=== PATIENT | female | born 1960 | race African-American/Black ===

== ENCOUNTER 2021-08-01 04:45 | Emergency (ER) | payer OTHER ==
[2021-08-01] MEDS ORDERED: Morphine 4 MG/ML VIAL ONE (05:17)
[2021-08-01 05:30] LABS: #Eosinphils 0.2 10x3/uL (0.0-0.5); #Monocytes 0.6 10x3/uL (0.0-1.1); #Neutrophils 3.7 10x3/uL (1.5-8.4); %Basophils 0.4 % (0.0-2.0); %Eosinophils 2.1 % (0.0-6.0); %Lymphocytes 36.6 % (18.0-47.0); %Monocytes 8.9 % (0.0-10.0); %Neutrophils 51.7 % (40.0-75.0); Hemoglobin 12.9 g/dL (12.0-15.5); Mean Corpuscular HGB CONC 33.9 g/dL (32.0-36.0); Mean Corpuscular Hemoglobin 30.7 pg (27.0-33.0); Mean Corpuscular Volume 90.7 fl (81.6-98.3); Mean Platelet Volume 12.2 fl (7.4-10.4); Platelet Count 152 10x3/uL (150-450); RBC Distribution Width 13.5 % (11.5-14.5); White Blood Cell (WBC) Count 7.1 10x3/uL (3.5-10.5)
[2021-08-01 05:46] LABS: ALT (SGPT) 142 U/L (8-55); AST (SGOT) 118 U/L (5-34); Albumin 3.1 g/dL (3.5-5.0); Alkaline Phosphatase 92 U/L (40-110); Anion Gap 16 mmol/L (10-20); BUN (Urea Nitrogen) 17 mg/dL (9.8-20.1); Bilirubin, Total 0.4 mg/dL (0.2-1.2); CK (CPK) 38 U/L (29-168); CRP (Inflammatory) Less than 0.50 mg/dL (= or < 0.5); Calc. Creatinine Clearance 0 mL/min (70-130); Calcium 8.9 mg/dL (7.8-10.44); Carbon Dioxide 22 mmol/L (22-29); Chloride 103 mmol/L (98-107); Globulin 4.8 g/dL (2.4-3.5); Glucose 192 mg/dL (70-105); Potassium 3.8 mmol/L (3.5-5.1); Protein, Total 7.9 g/dL (6.0-8.3); Sodium 137 mmol/L (136-145)
[2021-08-01 05:58] LABS: INR-International Normal Ratio 1.1; PTT 28.1 sec (22.0-33.0); Prothrombin Time 11.4 sec (9.5-12.1)
[2021-08-01 06:07] LABS: MDiff Complete? YES
[2021-08-01 06:24] LABS: Bilirubin Neg (Negative); Blood, Urine 25 (Negative); Clarity Clear (Clear); Glucose, Urine (Dipstick) 50 mg/dL (Negative); Ketone, Urine Negative (Negative); Leukocyte 100 (Negative); Nitrite Negative (Negative); Protein, Urine (Dipstick) 30 mg/dl (Neg-Trace); pH, Urine 6.5 (5.0-9.0)
[2021-08-01 06:34] LABS: Trichomonas/HPF 1+ HPF (None Seen)
[2021-08-01 06:38] LABS: Band 5 % (5-11); Eosinophils 1 % (0-10); Lymphocytes 35 % (21-51); Monocytes 9 % (0-10); Neutrophil 50 % (42-75)
[2021-08-01 06:38] LABS: RBC/HPF 0-3 HPF (0-3); WBC/HPF 0-3 HPF (0-3)
[2021-08-01] MEDS ORDERED: Iopamidol 370 76% 100 ML VIAL ONE (11:01)
== END 2021-08-01 07:08 | disposition home or self-care (01) ==
LOC: CSHERS 04:45
DX: E11.51 Type 2 diabetes mellitus with diabetic peripheral angiopathy without gangrene (principal); L03.116 Cellulitis of left lower limb; L03.115 Cellulitis of right lower limb; L97.829 Non-pressure chronic ulcer of other part of left lower leg with unspecified severity; E11.40 Type 2 diabetes mellitus with diabetic neuropathy, unspecified; I10 Essential (primary) hypertension; F17.210 Nicotine dependence, cigarettes, uncomplicated; Z79.84 Long term (current) use of oral hypoglycemic drugs; Z79.899 Other long term (current) drug therapy
CPT/HCPCS: 36416; 75635; 80053; 81003; 81015; 82550; 83605; 85025; 85610; 85730; 86140; 87040; 87086; 96361; 96374; J2270; Q9967

== ENCOUNTER 2021-08-06 09:17 | Outpatient (CLI) | payer OTHER | END 2021-08-06 09:18 | disposition home or self-care (01) | LOC: CSHWCC 09:17 | PROVIDERS: ATTEND Nurse Practitioner Family | DX: I70.262 Atherosclerosis of native arteries of extremities with gangrene, left leg (principal); L97.225 Non-pressure chronic ulcer of left calf with muscle involvement without evidence of necrosis; R60.0 Localized edema | CPT/HCPCS: 36416; 99204; G0463 ==

== ENCOUNTER 2021-08-14 10:49 | Outpatient (CLI) | payer OTHER | END 2021-08-14 10:50 | disposition home or self-care (01) | LOC: CSHWCC 10:49 | PROVIDERS: ATTEND Nurse Practitioner Family | DX: I70.262 Atherosclerosis of native arteries of extremities with gangrene, left leg (principal); L97.225 Non-pressure chronic ulcer of left calf with muscle involvement without evidence of necrosis; R60.0 Localized edema | CPT/HCPCS: 93923 ==

== ENCOUNTER 2021-09-10 09:56 | Outpatient (CLI) | payer OTHER | END 2021-09-10 09:57 | disposition home or self-care (01) | LOC: CSHWCC 09:56 | PROVIDERS: ATTEND Nurse Practitioner Family | DX: I70.262 Atherosclerosis of native arteries of extremities with gangrene, left leg (principal); L97.225 Non-pressure chronic ulcer of left calf with muscle involvement without evidence of necrosis; R60.0 Localized edema | CPT/HCPCS: 11042; 97607 ==

== ENCOUNTER 2021-09-15 15:17 | Inpatient (IN) | payer OTHER ==
[2021-09-15] MEDS ORDERED: Morphine 4 MG/ML VIAL ONE (16:47)
[2021-09-15] MEDS ORDERED: Ondansetron PF 4 MG/2 ML Vial ONE (16:47)
[2021-09-15 17:18] LABS: PTT 28.6 sec (22.0-33.0); Prothrombin Time 11.3 sec (9.5-12.1)
[2021-09-15 17:27] LABS: ALT (SGPT) 88 U/L (8-55); AST (SGOT) 74 U/L (5-34); Albumin 3.1 g/dL (3.5-5.0); Alkaline Phosphatase 105 U/L (40-110); Anion Gap 13 mmol/L (10-20); BUN (Urea Nitrogen) 20 mg/dL (9.8-20.1); Bilirubin, Total 0.4 mg/dL (0.2-1.2); Calc. Creatinine Clearance 0 mL/min (70-130); Calcium 9.3 mg/dL (7.8-10.44); Carbon Dioxide 26 mmol/L (22-29); Chloride 99 mmol/L (98-107); Estimated GFR 70; Globulin 5.1 g/dL (2.4-3.5); Glucose 410 mg/dL (70-105); Potassium 4.1 mmol/L (3.5-5.1); Protein, Total 8.2 g/dL (6.0-8.3); Sodium 134 mmol/L (136-145)
[2021-09-15 17:32] LABS: #Eosinphils 0.2 10x3/uL (0.0-0.5); #Monocytes 0.5 10x3/uL (0.0-1.1); #Neutrophils 4.2 10x3/uL (1.5-8.4); %Basophils 0.4 % (0.0-2.0); %Lymphocytes 28.6 % (18.0-47.0); %Monocytes 7.2 % (0.0-10.0); %Neutrophils 60.5 % (40.0-75.0); Hemoglobin 12.7 g/dL (12.0-15.5); Mean Corpuscular HGB CONC 33.2 g/dL (32.0-36.0); Mean Corpuscular Hemoglobin 30.4 pg (27.0-33.0); Mean Corpuscular Volume 91.4 fl (81.6-98.3); Mean Platelet Volume 12.7 fl (7.4-10.4); Platelet Count 181 10x3/uL (150-450); RBC Distribution Width 13.5 % (11.5-14.5); Red Blood Cell (RBC) Count 4.18 10x6/uL (3.90-5.03)
[2021-09-15] MEDS ORDERED: Cefepime 2 GM VIAL ONE (18:00)
[2021-09-15 20:39] LABS: Lactic Acid 2.2 mmol/L (0.5-2.2)
[2021-09-15] MEDS ORDERED: Acetaminophen 325 MG TAB PO PRN (21:03)
[2021-09-15] MEDS ORDERED: Dextrose 5% in Water 1,000 ML IV PRN (21:13)
[2021-09-15] MEDS ORDERED: Dextrose 50% Abboject 50 ML SYRINGE SLOW IVP PRN (21:13)
[2021-09-15] MEDS ORDERED: VANCOMYCIN 1.25 GM/250 ML BAG IVPB SCH (21:15)
[2021-09-15] MEDS ORDERED: Aspirin 81 mg Enteric Coated Tablet PO SCH (21:30)
[2021-09-15] MEDS ORDERED: Sodium Chloride 0.9% 1,000 ML IV SCH (21:30)
[2021-09-15 21:42] VITALS: BMI 23.1
[2021-09-15] MEDS ORDERED: cloNIDine 0.1 MG TAB PO SCH (21:45)
[2021-09-15] MEDS ORDERED: Vancomycin HCl 1 GM in Sodium Chloride 0.9% 250 ML 250 ML IVPB SCH (22:15)
[2021-09-15] MEDS ORDERED: Lantus 1000 UNITS/10 ML VIAL SC SCH (22:45)
[2021-09-15 23:10] LABS: SARS-CoV-2 NAA Rapid Test Not Detected (NotDetected)
[2021-09-15] MEDS: Sodium Chloride 0.9% 1,000 ML IV SCH (23:25)
[2021-09-16] MEDS ORDERED: cloNIDine 0.1 MG TAB PO SCH (04:30)
[2021-09-16] MEDS ORDERED: Morphine 2 MG/ML VIAL SLOW IVP SCH (04:45)
[2021-09-16] MEDS: HumaLOG 300 UNITS/3 ML VIAL SC PRN ×3 (04:49→20:59)
[2021-09-16 05:31] LABS: #Eosinphils 0.3 10x3/uL (0.0-0.5); #Monocytes 0.6 10x3/uL (0.0-1.1); #Neutrophils 4.1 10x3/uL (1.5-8.4); %Basophils 0.4 % (0.0-2.0); %Eosinophils 3.3 % (0.0-6.0); %Lymphocytes 34.9 % (18.0-47.0); %Monocytes 7.3 % (0.0-10.0); %Neutrophils 53.7 % (40.0-75.0); Hemoglobin 12.1 g/dL (12.0-15.5); Mean Corpuscular HGB CONC 32.8 g/dL (32.0-36.0); Mean Corpuscular Hemoglobin 29.8 pg (27.0-33.0); Mean Corpuscular Volume 90.9 fl (81.6-98.3); Mean Platelet Volume 12.6 fl (7.4-10.4); Platelet Count 178 10x3/uL (150-450); RBC Distribution Width 13.5 % (11.5-14.5); Red Blood Cell (RBC) Count 4.06 10x6/uL (3.90-5.03); White Blood Cell (WBC) Count 7.7 10x3/uL (3.5-10.5)
[2021-09-16 05:38] LABS: Anion Gap 13 mmol/L (10-20); BUN (Urea Nitrogen) 22 mg/dL (9.8-20.1); Calc. Creatinine Clearance 65 mL/min (70-130); Calcium 8.6 mg/dL (7.8-10.44); Carbon Dioxide 23 mmol/L (22-29); Chloride 108 mmol/L (98-107); Estimated GFR 90; Glucose 191 mg/dL (70-105); Magnesium 1.5 mg/dL (1.6-2.6); Potassium 3.6 mmol/L (3.5-5.1); Sodium 140 mmol/L (136-145)
[2021-09-16] MEDS: Cefepime 2 GM in Sodium Chloride 0.9% 100 ML IVPB SCH ×2 (06:02→17:46)
[2021-09-16] MEDS ORDERED: Magnesium 2 GM/50 ML(in water) 4 GM in Premix Bag 1 BAG IVPB SCH (08:00)
[2021-09-16] MEDS: Amlodipine 5 MG TAB PO SCH (09:31)
[2021-09-16] MEDS: metFORMIN 500 MG TAB PO SCH ×3 (09:31→17:45)
[2021-09-16] MEDS: Aspirin 81 mg Enteric Coated Tablet PO SCH (09:31)
[2021-09-16] MEDS: Enoxaparin Sodium 40 MG/0.4 ML SYRINGE SC SCH (09:31)
[2021-09-16] MEDS: Sodium Chloride 0.9% 1,000 ML IV SCH (09:31)
[2021-09-16] MEDS: cloNIDine 0.1 MG TAB PO SCH ×2 (09:32→21:06)
[2021-09-16] MEDS ORDERED: Hydrochlorothiazide 25 MG TAB PO SCH (10:00)
[2021-09-16 10:41] LABS: ALT (SGPT) 77 U/L (8-55); AST (SGOT) 67 U/L (5-34); Albumin 2.8 g/dL (3.5-5.0); Alkaline Phosphatase 98 U/L (40-110); Bilirubin, Direct 0.2 mg/dL (0.1-0.3); Bilirubin, Total 0.3 mg/dL (0.2-1.2); Protein, Total 7.3 g/dL (6.0-8.3)
[2021-09-16] MEDS: Nicotine 21 MG PATCH TD SCH (11:52)
[2021-09-16] MEDS: HYDROcodone/Acetaminophen 5/325 mg Tablet PO PRN (17:45)
[2021-09-16] MEDS: Morphine 2 MG/ML VIAL SLOW IVP PRN ×2 (19:10→23:16)
[2021-09-16] MEDS: Montelukast Sodium 10 mg Tablet PO SCH (20:55)
[2021-09-16] MEDS ORDERED: Lantus 1000 UNITS/10 ML VIAL SC SCH ×3 (21:00)
[2021-09-16] MEDS ORDERED: Vancomycin HCl 750 MG in Sodium Chloride 0.9% 250 ML 250 ML IVPB SCH (23:00)
[2021-09-17] MEDS: HumaLOG 300 UNITS/3 ML VIAL SC PRN ×4 (00:17→18:06)
[2021-09-17 00:58] LABS: Amphetamine Not Detected (NotDetected); Barbiturates Screen Not Detected (NotDetected); Benzodiazepine Screen Not Detected (NotDetected); Cocaine Metabolite Screen Detected (NotDetected); Methadone Not Detected (NotDetected); Methamphetamine Not Detected (NotDetected); Opiate Screen Detected (NotDetected); Oxycodone Screen Not Detected (NotDetected); Phencyclidine (PCP) Not Detected (NotDetected); THC/Cannabinoid Screen Not Detected (NotDetected); Tricyclic Screen Not Detected (NotDetected)
[2021-09-17] MEDS: Morphine 2 MG/ML VIAL SLOW IVP PRN ×2 (05:10→20:00)
[2021-09-17] MEDS: Cefepime 2 GM in Sodium Chloride 0.9% 100 ML IVPB SCH ×2 (05:30→18:04)
[2021-09-17 05:58] LABS: ALT (SGPT) 74 U/L (8-55); AST (SGOT) 63 U/L (5-34); Albumin 2.7 g/dL (3.5-5.0); Alkaline Phosphatase 82 U/L (40-110); Anion Gap 11 mmol/L (10-20); BUN (Urea Nitrogen) 21 mg/dL (9.8-20.1); Bilirubin, Total 0.3 mg/dL (0.2-1.2); Calc. Creatinine Clearance 68 mL/min (70-130); Calcium 8.9 mg/dL (7.8-10.44); Carbon Dioxide 22 mmol/L (22-29); Chloride 109 mmol/L (98-107); Estimated GFR 96; Globulin 4.6 g/dL (2.4-3.5); Glucose 263 mg/dL (70-105); Magnesium 1.5 mg/dL (1.6-2.6); Potassium 4.1 mmol/L (3.5-5.1); Protein, Total 7.3 g/dL (6.0-8.3); Sodium 138 mmol/L (136-145)
[2021-09-17 06:10] LABS: Hep B Surf Ag Non-Reactive S/CO (NonReactive)
[2021-09-17 06:46] LABS: Cardiac Risk 4.5 (Less than 4.5); Cholesterol 118 mg/dl (< 200 Desired); HDL Cholesterol 26 mg/dL (>60 Neg Risk); LDL Cholesterol, Calculated 71 mg/dL; Triglycerides 105 mg/dL (Less than 150)
[2021-09-17 07:43] LABS: HBSAg Index 0.21 S/CO (0-0.99)
[2021-09-17] MEDS: metFORMIN 500 MG TAB PO SCH ×2 (08:57→18:04)
[2021-09-17] MEDS: Magnesium 2 GM/50 ML(in water) 2 GM in Premix Bag 1 BAG IVPB SCH ×2 (08:58→12:03)
[2021-09-17] MEDS: Nicotine 21 MG PATCH TD SCH (08:58)
[2021-09-17] MEDS: Enoxaparin Sodium 40 MG/0.4 ML SYRINGE SC SCH (08:59)
[2021-09-17] MEDS: Aspirin 81 mg Enteric Coated Tablet PO SCH (08:59)
[2021-09-17] MEDS: Amlodipine 5 MG TAB PO SCH (08:59)
[2021-09-17] MEDS: cloNIDine 0.1 MG TAB PO SCH ×2 (09:03→22:00)
[2021-09-17] MEDS: Hydrochlorothiazide 25 MG TAB PO SCH (09:03)
[2021-09-17 10:23] LABS: %Lymphocytes 35.8 % (18.0-47.0); %Monocytes 9.2 % (0.0-10.0); %Neutrophils 51.3 % (40.0-75.0); Hemoglobin 11.6 g/dL (12.0-15.5); Mean Corpuscular HGB CONC 33.5 g/dL (32.0-36.0); Mean Corpuscular Hemoglobin 30.2 pg (27.0-33.0); Mean Corpuscular Volume 90.1 fl (81.6-98.3); Mean Platelet Volume 12.4 fl (7.4-10.4); Platelet Count 178 10x3/uL (150-450); RBC Distribution Width 13.9 % (11.5-14.5); Red Blood Cell (RBC) Count 3.84 10x6/uL (3.90-5.03); White Blood Cell (WBC) Count 8.1 10x3/uL (3.5-10.5)
[2021-09-17 10:24] LABS: #Eosinphils 0.2 10x3/uL (0.0-0.5); #Monocytes 0.8 10x3/uL (0.0-1.1); #Neutrophils 4.2 10x3/uL (1.5-8.4); %Basophils 0.5 % (0.0-2.0)
[2021-09-17] MEDS: Vancomycin HCl 750 MG in Sodium Chloride 0.9% 250 ML 250 ML IVPB SCH (12:04)
[2021-09-17] MEDS: HYDROcodone/Acetaminophen 5/325 mg Tablet PO PRN (22:20)
[2021-09-17] MEDS: Montelukast Sodium 10 mg Tablet PO SCH (22:22)
[2021-09-17] MEDS: Lantus 1000 UNITS/10 ML VIAL SC SCH (22:23)
[2021-09-18] MEDS: Morphine 2 MG/ML VIAL SLOW IVP PRN (01:01)
[2021-09-18 04:07] LABS: PTT 27.4 sec (22.0-33.0)
[2021-09-18 04:15] LABS: ALT (SGPT) 76 U/L (8-55); AST (SGOT) 68 U/L (5-34); Albumin 2.7 g/dL (3.5-5.0); Alkaline Phosphatase 89 U/L (40-110); Anion Gap 13 mmol/L (10-20); BUN (Urea Nitrogen) 16 mg/dL (9.8-20.1); Bilirubin, Total 0.3 mg/dL (0.2-1.2); Calc. Creatinine Clearance 80 mL/min (70-130); Calcium 8.3 mg/dL (7.8-10.44); Carbon Dioxide 21 mmol/L (22-29); Chloride 106 mmol/L (98-107); Estimated GFR 102; Globulin 4.5 g/dL (2.4-3.5); Glucose 171 mg/dL (70-105); Magnesium 1.8 mg/dL (1.6-2.6); Potassium 3.8 mmol/L (3.5-5.1); Protein, Total 7.2 g/dL (6.0-8.3); Sodium 136 mmol/L (136-145)
[2021-09-18 04:18] LABS: #Eosinphils 0.3 10x3/uL (0.0-0.5); #Monocytes 0.7 10x3/uL (0.0-1.1); #Neutrophils 4.5 10x3/uL (1.5-8.4); %Basophils 0.5 % (0.0-2.0); %Eosinophils 3.1 % (0.0-6.0); %Lymphocytes 32.8 % (18.0-47.0); %Monocytes 8.4 % (0.0-10.0); Hemoglobin 11.1 g/dL (12.0-15.5); Mean Corpuscular HGB CONC 32.8 g/dL (32.0-36.0); Mean Corpuscular Hemoglobin 29.8 pg (27.0-33.0); Mean Corpuscular Volume 90.9 fl (81.6-98.3); Mean Platelet Volume 12.3 fl (7.4-10.4); Platelet Count 184 10x3/uL (150-450); RBC Distribution Width 13.5 % (11.5-14.5); Red Blood Cell (RBC) Count 3.72 10x6/uL (3.90-5.03); White Blood Cell (WBC) Count 8.1 10x3/uL (3.5-10.5)
[2021-09-18] MEDS: Cefepime 2 GM in Sodium Chloride 0.9% 100 ML IVPB SCH ×2 (07:15→18:44)
[2021-09-18] MEDS: Vancomycin HCl 750 MG in Sodium Chloride 0.9% 250 ML 250 ML IVPB SCH ×3 (07:22→22:04)
[2021-09-18] MEDS ORDERED: Clopidogrel Bisulfate 300 MG TAB PO SCH (09:00)
[2021-09-18] MEDS: metFORMIN 500 MG TAB PO SCH ×2 (10:26→18:10)
[2021-09-18] MEDS: Amlodipine 5 MG TAB PO SCH (10:26)
[2021-09-18] MEDS: Aspirin 81 mg Enteric Coated Tablet PO SCH (10:26)
[2021-09-18] MEDS: Enoxaparin Sodium 40 MG/0.4 ML SYRINGE SC SCH (10:27)
[2021-09-18] MEDS: Nicotine 21 MG PATCH TD SCH (10:27)
[2021-09-18] MEDS: cloNIDine 0.1 MG TAB PO SCH ×2 (10:36→21:54)
[2021-09-18] MEDS: Hydrochlorothiazide 25 MG TAB PO SCH (11:58)
[2021-09-18] MEDS ORDERED: Heparin 10,000 UNITS/ 10 ML VIAL ONE (12:12)
[2021-09-18] MEDS ORDERED: Midazolam HCl 2 mg/2 ml Vial ONE (12:13)
[2021-09-18] MEDS ORDERED: Fentanyl 100 MCG/2 ML VIAL ONE (12:13)
[2021-09-18] MEDS ORDERED: Lidocaine 1% 20 ML MDV ONE (12:14)
[2021-09-18] MEDS ORDERED: Iopamidol 300 61% 100 ML VIAL FS ONE (12:48)
[2021-09-18] MEDS ORDERED: Iopamidol 300 61% 50 ML VIAL FS ONE (12:48)
[2021-09-18] MEDS ORDERED: Labetalol HCl 100 MG/20 ML VIAL ONE (13:19)
[2021-09-18] MEDS ORDERED: Protamine Sulfate 50 MG/5 ML VIAL ONE (13:39)
[2021-09-18 13:58] LABS: HBSAB Concentration Less than 8.00 mIU/mL; Hep B Surf AB Non-Reactive (NonReactive)
[2021-09-18 14:01] LABS: Hep B Core Total Ab Reactive (NonReactive); Hep B Core Total Index 9.19 S/CO (0-0.79); Hep C IgG Ab Reflex HepC Qnt (NonReactive); Hep C Index 17.07 S/CO (0-0.79)
[2021-09-18] MEDS: HYDROcodone/Acetaminophen 5/325 mg Tablet PO PRN ×2 (18:10→22:45)
[2021-09-18] MEDS: Carvedilol 6.25 MG TAB PO SCH (18:44)
[2021-09-18] MEDS: Montelukast Sodium 10 mg Tablet PO SCH (21:55)
[2021-09-18] MEDS: Lantus 1000 UNITS/10 ML VIAL SC SCH (21:58)
[2021-09-19] MEDS: HYDROcodone/Acetaminophen 5/325 mg Tablet PO PRN (05:13)
[2021-09-19 05:21] LABS: ALT (SGPT) 80 U/L (8-55); AST (SGOT) 65 U/L (5-34); Albumin 2.7 g/dL (3.5-5.0); Alkaline Phosphatase 97 U/L (40-110); Anion Gap 11 mmol/L (10-20); BUN (Urea Nitrogen) 16 mg/dL (9.8-20.1); Bilirubin, Total 0.2 mg/dL (0.2-1.2); Calc. Creatinine Clearance 70 mL/min (70-130); Calcium 8.6 mg/dL (7.8-10.44); Carbon Dioxide 24 mmol/L (22-29); Chloride 104 mmol/L (98-107); Estimated GFR 99; Globulin 4.8 g/dL (2.4-3.5); Glucose 382 mg/dL (70-105); Magnesium 1.5 mg/dL (1.6-2.6); Protein, Total 7.5 g/dL (6.0-8.3); Sodium 135 mmol/L (136-145)
[2021-09-19] MEDS: Cefepime 2 GM in Sodium Chloride 0.9% 100 ML IVPB SCH ×2 (05:23→18:25)
[2021-09-19 05:26] LABS: #Eosinphils 0.2 10x3/uL (0.0-0.5); #Monocytes 0.8 10x3/uL (0.0-1.1); #Neutrophils 5.3 10x3/uL (1.5-8.4); %Basophils 0.4 % (0.0-2.0); %Eosinophils 2.7 % (0.0-6.0); %Lymphocytes 25.1 % (18.0-47.0); %Monocytes 9.3 % (0.0-10.0); %Neutrophils 62.1 % (40.0-75.0); Hemoglobin 11.2 g/dL (12.0-15.5); Mean Corpuscular HGB CONC 32.8 g/dL (32.0-36.0); Mean Corpuscular Hemoglobin 29.8 pg (27.0-33.0); Mean Corpuscular Volume 90.7 fl (81.6-98.3); Mean Platelet Volume 12.5 fl (7.4-10.4); Platelet Count 181 10x3/uL (150-450); RBC Distribution Width 13.8 % (11.5-14.5); Red Blood Cell (RBC) Count 3.76 10x6/uL (3.90-5.03); White Blood Cell (WBC) Count 8.5 10x3/uL (3.5-10.5)
[2021-09-19] MEDS: Morphine 2 MG/ML VIAL SLOW IVP PRN ×2 (06:12→23:53)
[2021-09-19] MEDS ORDERED: Lantus 1000 UNITS/10 ML VIAL SC SCH (09:00)
[2021-09-19] MEDS: Hydrochlorothiazide 25 MG TAB PO SCH (11:02)
[2021-09-19] MEDS: Clopidogrel Bisulfate 75 MG TAB PO SCH (11:02)
[2021-09-19] MEDS: cloNIDine 0.1 MG TAB PO SCH ×2 (11:02→23:39)
[2021-09-19] MEDS: Amlodipine 5 MG TAB PO SCH (11:03)
[2021-09-19] MEDS: Enoxaparin Sodium 40 MG/0.4 ML SYRINGE SC SCH (11:03)
[2021-09-19] MEDS: Nicotine 21 MG PATCH TD SCH (11:04)
[2021-09-19] MEDS: metFORMIN 500 MG TAB PO SCH ×2 (11:04→18:25)
[2021-09-19] MEDS: Vancomycin HCl 1 GM in Sodium Chloride 0.9% 250 ML 250 ML IVPB SCH ×2 (11:04→23:40)
[2021-09-19] MEDS: Carvedilol 6.25 MG TAB PO SCH ×2 (11:04→18:25)
[2021-09-19] MEDS: Aspirin 81 mg Enteric Coated Tablet PO SCH (11:04)
[2021-09-19] MEDS: HumaLOG 300 UNITS/3 ML VIAL SC PRN ×2 (11:06→18:26)
[2021-09-19] MEDS: Montelukast Sodium 10 mg Tablet PO SCH (23:39)
[2021-09-19] MEDS: Lantus 1000 UNITS/10 ML VIAL SC SCH (23:40)
[2021-09-20 05:18] LABS: #Eosinphils 0.3 10x3/uL (0.0-0.5); #Monocytes 0.9 10x3/uL (0.0-1.1); #Neutrophils 5.4 10x3/uL (1.5-8.4); %Basophils 0.4 % (0.0-2.0); %Eosinophils 3.3 % (0.0-6.0); %Lymphocytes 29.9 % (18.0-47.0); %Monocytes 9.4 % (0.0-10.0); %Neutrophils 56.5 % (40.0-75.0); Hemoglobin 10.7 g/dL (12.0-15.5); Mean Corpuscular HGB CONC 33.2 g/dL (32.0-36.0); Mean Corpuscular Hemoglobin 30.4 pg (27.0-33.0); Mean Corpuscular Volume 91.5 fl (81.6-98.3); Mean Platelet Volume 12.8 fl (7.4-10.4); Platelet Count 180 10x3/uL (150-450); RBC Distribution Width 13.6 % (11.5-14.5); Red Blood Cell (RBC) Count 3.52 10x6/uL (3.90-5.03); White Blood Cell (WBC) Count 9.5 10x3/uL (3.5-10.5)
[2021-09-20 05:43] LABS: ALT (SGPT) 75 U/L (8-55); AST (SGOT) 62 U/L (5-34); Albumin 2.8 g/dL (3.5-5.0); Alkaline Phosphatase 88 U/L (40-110); Anion Gap 11 mmol/L (10-20); BUN (Urea Nitrogen) 15 mg/dL (9.8-20.1); Bilirubin, Total 0.4 mg/dL (0.2-1.2); Calc. Creatinine Clearance 71 mL/min (70-130); Calcium 8.7 mg/dL (7.8-10.44); Carbon Dioxide 24 mmol/L (22-29); Chloride 105 mmol/L (98-107); Estimated GFR 99; Globulin 4.7 g/dL (2.4-3.5); Glucose 233 mg/dL (70-105); Magnesium 1.3 mg/dL (1.6-2.6); Protein, Total 7.5 g/dL (6.0-8.3); Sodium 136 mmol/L (136-145)
[2021-09-20] MEDS: HYDROcodone/Acetaminophen 5/325 mg Tablet PO PRN ×2 (05:45→21:14)
[2021-09-20] MEDS: Cefepime 2 GM in Sodium Chloride 0.9% 100 ML IVPB SCH ×2 (05:45→18:13)
[2021-09-20] MEDS: HumaLOG 300 UNITS/3 ML VIAL SC PRN (07:09)
[2021-09-20] MEDS: Enoxaparin Sodium 40 MG/0.4 ML SYRINGE SC SCH (10:21)
[2021-09-20] MEDS: Hydrochlorothiazide 25 MG TAB PO SCH (10:22)
[2021-09-20] MEDS: Carvedilol 6.25 MG TAB PO SCH ×2 (10:22→18:14)
[2021-09-20] MEDS: cloNIDine 0.1 MG TAB PO SCH ×2 (10:22→21:14)
[2021-09-20] MEDS: Aspirin 81 mg Enteric Coated Tablet PO SCH (10:22)
[2021-09-20] MEDS: metFORMIN 500 MG TAB PO SCH ×2 (10:22→18:14)
[2021-09-20] MEDS: Clopidogrel Bisulfate 75 MG TAB PO SCH (10:22)
[2021-09-20] MEDS: Amlodipine 5 MG TAB PO SCH (10:23)
[2021-09-20] MEDS: Nicotine 21 MG PATCH TD SCH (10:26)
[2021-09-20] MEDS: Vancomycin HCl 1 GM in Sodium Chloride 0.9% 250 ML 250 ML IVPB SCH ×2 (10:26→21:15)
[2021-09-20] MEDS: Montelukast Sodium 10 mg Tablet PO SCH (21:14)
[2021-09-20] MEDS ORDERED: hydrALAZINE 20 MG/ML VIAL SLOW IVP PRN (21:20)
[2021-09-20 21:34] LABS: Vancomycin, Trough 15.5 ug/mL
[2021-09-20] MEDS: Lantus 1000 UNITS/10 ML VIAL SC SCH (22:15)
[2021-09-21] MEDS: Cefepime 2 GM in Sodium Chloride 0.9% 100 ML IVPB SCH (04:56)
[2021-09-21] MEDS: HumaLOG 300 UNITS/3 ML VIAL SC PRN ×2 (07:14→12:00)
[2021-09-21] MEDS: Enoxaparin Sodium 40 MG/0.4 ML SYRINGE SC SCH (08:01)
[2021-09-21] MEDS: metFORMIN 500 MG TAB PO SCH (08:01)
[2021-09-21] MEDS: Aspirin 81 mg Enteric Coated Tablet PO SCH (08:02)
[2021-09-21] MEDS: Clopidogrel Bisulfate 75 MG TAB PO SCH (08:04)
[2021-09-21] MEDS: Hydrochlorothiazide 25 MG TAB PO SCH (08:04)
[2021-09-21] MEDS: Carvedilol 6.25 MG TAB PO SCH (08:05)
[2021-09-21] MEDS: cloNIDine 0.1 MG TAB PO SCH (08:05)
[2021-09-21] MEDS: Amlodipine 5 MG TAB PO SCH (08:06)
[2021-09-21] MEDS: Nicotine 21 MG PATCH TD SCH (08:06)
[2021-09-21 09:26] LABS: #Eosinphils 0.3 10x3/uL (0.0-0.5); #Monocytes 0.8 10x3/uL (0.0-1.1); #Neutrophils 4.3 10x3/uL (1.5-8.4); %Basophils 0.4 % (0.0-2.0); %Eosinophils 3.5 % (0.0-6.0); %Lymphocytes 24.3 % (18.0-47.0); %Monocytes 11.5 % (0.0-10.0); %Neutrophils 59.7 % (40.0-75.0); Hemoglobin 10.8 g/dL (12.0-15.5); Mean Corpuscular Hemoglobin 30.3 pg (27.0-33.0); Mean Corpuscular Volume 91.9 fl (81.6-98.3); Mean Platelet Volume 12.3 fl (7.4-10.4); Platelet Count 185 10x3/uL (150-450); RBC Distribution Width 13.7 % (11.5-14.5); Red Blood Cell (RBC) Count 3.56 10x6/uL (3.90-5.03); White Blood Cell (WBC) Count 7.2 10x3/uL (3.5-10.5)
[2021-09-21 09:32] LABS: ALT (SGPT) 77 U/L (8-55); AST (SGOT) 63 U/L (5-34); Albumin 2.8 g/dL (3.5-5.0); Alkaline Phosphatase 92 U/L (40-110); Anion Gap 13 mmol/L (10-20); BUN (Urea Nitrogen) 16 mg/dL (9.8-20.1); Bilirubin, Total 0.3 mg/dL (0.2-1.2); Calc. Creatinine Clearance 68 mL/min (70-130); Calcium 8.6 mg/dL (7.8-10.44); Carbon Dioxide 21 mmol/L (22-29); Chloride 107 mmol/L (98-107); Estimated GFR 96; Globulin 4.8 g/dL (2.4-3.5); Glucose 254 mg/dL (70-105); Magnesium 1.4 mg/dL (1.6-2.6); Potassium 3.5 mmol/L (3.5-5.1); Protein, Total 7.6 g/dL (6.0-8.3); Sodium 137 mmol/L (136-145)
[2021-09-21] MEDS: Vancomycin HCl 1 GM in Sodium Chloride 0.9% 250 ML 250 ML IVPB SCH (10:10)
[2021-09-21 11:49] VITALS: BP 156/85; TEMP 97.7
== END 2021-09-21 12:05 | disposition home or self-care (01) | DRG 253 ==
LOC: CSHERS 15:17 → CSHTELE 21:28
PROVIDERS: ADMIT Family Medicine; ATTEND Internal Medicine
PROC: 047L3ZZ Dilation of Left Femoral Artery, Percutaneous Approach (ICD-10-PCS; principal; 2021-09-18)
PROC: B4101ZZ Fluoroscopy of Abdominal Aorta using Low Osmolar Contrast (ICD-10-PCS; 2021-09-18)
PROC: B41F1ZZ Fluoroscopy of Right Lower Extremity Arteries using Low Osmolar Contrast (ICD-10-PCS; 2021-09-18)
DX: E11.51 Type 2 diabetes mellitus with diabetic peripheral angiopathy without gangrene (principal); L97.929 Non-pressure chronic ulcer of unspecified part of left lower leg with unspecified severity; E11.622 Type 2 diabetes mellitus with other skin ulcer; I10 Essential (primary) hypertension; J45.909 Unspecified asthma, uncomplicated; F17.210 Nicotine dependence, cigarettes, uncomplicated; E11.65 Type 2 diabetes mellitus with hyperglycemia; I25.10 Atherosclerotic heart disease of native coronary artery without angina pectoris; E11.40 Type 2 diabetes mellitus with diabetic neuropathy, unspecified; E83.42 Hypomagnesemia; F14.10 Cocaine abuse, uncomplicated; F12.10 Cannabis abuse, uncomplicated; Z20.822 Contact with and (suspected) exposure to COVID-19; F19.10 Other psychoactive substance abuse, uncomplicated; Z98.51 Tubal ligation status; Z79.4 Long term (current) use of insulin; Z86.718 Personal history of other venous thrombosis and embolism
CPT/HCPCS: 36140; 36247; 36415; 36416; 37224; 71045; 75625; 75716; 76705; 80048; 80053; 80061; 80076; 80202; 80306; 82140; 83036; 83605; 83735; 84443; 85025; 85347; 85610; 85652; 85730; 86140; 86704; 86706; 86803; 87040; 87070; 87077; 87186; 87205; 87340; 96374; 96375; 97139; 99152; 99153; C1725; C1760; C1769; C1894; J0360; J0692; J1644; J1650; J1815; J2250; J2270; J2405; J2720; J3010; J3370; J3475; J3490; J7050; J7620; Q9967; U0002

== ENCOUNTER 2021-09-30 10:09 | Outpatient (CLI) | payer OTHER | END 2021-09-30 10:10 | disposition home or self-care (01) | LOC: CSHWCC 10:09 | PROVIDERS: ATTEND Nurse Practitioner Family | DX: I70.262 Atherosclerosis of native arteries of extremities with gangrene, left leg (principal); L97.225 Non-pressure chronic ulcer of left calf with muscle involvement without evidence of necrosis; R60.0 Localized edema ==

== ENCOUNTER 2021-10-16 08:16 | Outpatient (CLI) | payer OTHER | END 2021-10-16 08:17 | disposition home or self-care (01) | LOC: CSHWCC 08:16 | PROVIDERS: ATTEND Nurse Practitioner Family | DX: I70.262 Atherosclerosis of native arteries of extremities with gangrene, left leg (principal); L97.225 Non-pressure chronic ulcer of left calf with muscle involvement without evidence of necrosis; R60.0 Localized edema | CPT/HCPCS: 36416 ==

== ENCOUNTER 2022-02-13 17:57 | Inpatient (IN) | payer OTHER ==
[2022-02-13] MEDS ORDERED: methylPREDNISolone Sod Succ/PF 125 MG/2 ML VIAL ONE (18:47)
[2022-02-13 19:06] LABS: PTT 23.4 sec (22.0-33.0); Prothrombin Time 11.1 sec (9.5-12.1)
[2022-02-13 19:08] LABS: #Eosinphils 0.1 10x3/uL (0.0-0.5); #Monocytes 0.8 10x3/uL (0.0-1.1); #Neutrophils 8.7 10x3/uL (1.5-8.4); %Basophils 0.2 % (0.0-2.0); %Eosinophils 0.7 % (0.0-6.0); %Monocytes 6.5 % (0.0-10.0); %Neutrophils 73.1 % (40.0-75.0); Hemoglobin 9.1 g/dL (12.0-15.5); Mean Corpuscular HGB CONC 29.4 g/dL (32.0-36.0); Mean Corpuscular Hemoglobin 20.6 pg (27.0-33.0); Mean Corpuscular Volume 70.3 fl (81.6-98.3); Mean Platelet Volume 11.5 fl (7.4-10.4); Platelet Count 287 10x3/uL (150-450); Red Blood Cell (RBC) Count 4.41 10x6/uL (3.90-5.03); White Blood Cell (WBC) Count 11.7 10x3/uL (3.5-10.5)
[2022-02-13 19:11] LABS: ALT (SGPT) 118 U/L (8-55); AST (SGOT) 136 U/L (5-34); Albumin 3.2 g/dL (3.5-5.0); Alkaline Phosphatase 101 U/L (40-110); Anion Gap 14 mmol/L (10-20); BUN (Urea Nitrogen) 17 mg/dL (9.8-20.1); Bilirubin, Total 0.7 mg/dL (0.2-1.2); Calc. Creatinine Clearance 0 mL/min (70-130); Calcium 8.8 mg/dL (7.8-10.44); Carbon Dioxide 21 mmol/L (22-29); Chloride 109 mmol/L (98-107); Estimated GFR 100; Globulin 5.6 g/dL (2.4-3.5); Glucose 55 mg/dL (70-105); Potassium 4.2 mmol/L (3.5-5.1); Protein, Total 8.8 g/dL (6.0-8.3); Sodium 140 mmol/L (136-145)
[2022-02-13 19:11] LABS: ALV-art Gradient 115.655 mmHg (0-20); Base Excess (BEa) 3.1 mEq/L (-2.0 to +3.0); CO2 Tension 38.5 mmHg (35.0-45.0); Calcium, Ionized (arterial) 1.21 mmol/L (1.12-1.30); Carboxyhemoglobin (COHb) 1.3 gm% (0.0-3.0); Critical Notified By: CP.PH; Hemoglobin (Hb) 9.4 g/dL (12.0-16.0); O2 Tension (PaO2), arterial 92.9 mmHg (> 80.0); Puncture Site RRA; RapidComm Collect By CP.PH; pH, Arterial 7.46 (7.35-7.45)
[2022-02-13] MEDS ORDERED: Dextrose 50% Abboject 50 ML SYRINGE ONE (19:13)
[2022-02-13] MEDS ORDERED: Furosemide 40 MG/4 ML VIAL ONE ×2 (19:22→23:41)
[2022-02-13] MEDS ORDERED: Nitroglycerin 2% Ointment 1 INCH/1 GM Packet ONE (19:22)
[2022-02-13 19:34] LABS: SARS-CoV-2 NAA Rapid Test Not Detected (NotDetected)
[2022-02-13] MEDS ORDERED: Cefepime 2 GM VIAL ONE (20:01)
[2022-02-13] MEDS ORDERED: Vancomycin 1 GM VIAL ONE (20:22)
[2022-02-13] MEDS ORDERED: Acetaminophen 325 MG TAB PO PRN (22:22)
[2022-02-13] MEDS ORDERED: Dextrose 50% Abboject 50 ML SYRINGE SLOW IVP PRN (22:22)
[2022-02-13] MEDS ORDERED: Dextrose 5% in Water 1,000 ML IV PRN (22:22)
[2022-02-13] MEDS ORDERED: hydrALAZINE 20 MG/ML VIAL SLOW IVP PRN (22:28)
[2022-02-13] MEDS ORDERED: Ventolin HFA Inhaler 60 PUFF INHALER INH PRN (22:28)
[2022-02-13 22:46] LABS: Troponin I Less than 0.010 ng/mL (< 0.028)
[2022-02-13] MEDS ORDERED: Furosemide 40 MG/4 ML VIAL SLOW IVP SCH (23:00)
[2022-02-13 23:44] LABS: Bilirubin Neg (Negative); Blood, Urine Negative (Negative); Clarity Clear (Clear); Glucose, Urine (Dipstick) >=1000 mg/dL (Negative); Ketone, Urine Negative (Negative); Leukocyte Negative (Negative); Nitrite Negative (Negative); Protein, Urine (Dipstick) 15 mg/dl (Neg-Trace)
[2022-02-13] MEDS: Dextrose 5% in Water 1,000 ML IV SCH (23:47)
[2022-02-13] MEDS ORDERED: Vancomycin HCl 1 GM in Sodium Chloride 0.9% 250 ML 250 ML IVPB SCH (23:59)
[2022-02-14 04:30] LABS: ALT (SGPT) 91 U/L (8-55); AST (SGOT) 98 U/L (5-34); Albumin 2.6 g/dL (3.5-5.0); Alkaline Phosphatase 83 U/L (40-110); Anion Gap 14 mmol/L (10-20); BUN (Urea Nitrogen) 16 mg/dL (9.8-20.1); Bilirubin, Total 0.6 mg/dL (0.2-1.2); Calc. Creatinine Clearance 71 mL/min (70-130); Calcium 8.1 mg/dL (7.8-10.44); Carbon Dioxide 22 mmol/L (22-29); Chloride 105 mmol/L (98-107); Estimated GFR 96; Glucose 230 mg/dL (70-105); Magnesium 1.3 mg/dL (1.6-2.6); Potassium 3.4 mmol/L (3.5-5.1); Protein, Total 7.6 g/dL (6.0-8.3); Sodium 138 mmol/L (136-145)
[2022-02-14] MEDS ORDERED: Furosemide 40 MG/4 ML VIAL ONE (05:40)
[2022-02-14 05:45] LABS: Amphetamine Not Detected (NotDetected); Barbiturates Screen Not Detected (NotDetected); Benzodiazepine Screen Not Detected (NotDetected); Cocaine Metabolite Screen Detected (NotDetected); Methadone Not Detected (NotDetected); Methamphetamine Not Detected (NotDetected); Opiate Screen Not Detected (NotDetected); Oxycodone Screen Not Detected (NotDetected); Phencyclidine (PCP) Not Detected (NotDetected); THC/Cannabinoid Screen Not Detected (NotDetected); Tricyclic Screen Not Detected (NotDetected)
[2022-02-14] MEDS: Furosemide 40 MG/4 ML VIAL SLOW IVP SCH ×2 (05:47→15:54)
[2022-02-14] MEDS ORDERED: Aspirin Chewable 81 MG TAB ONE (07:30)
[2022-02-14] MEDS ORDERED: Clopidogrel Bisulfate 75 MG TAB ONE (07:31)
[2022-02-14] MEDS ORDERED: Cefepime 2 GM VIAL ONE (07:31)
[2022-02-14] MEDS ORDERED: Enoxaparin Sodium 40 MG/0.4 ML SYRINGE ONE (07:31)
[2022-02-14] MEDS ORDERED: Vancomycin 1 GM VIAL ONE ×2 (07:31→20:59)
[2022-02-14] MEDS ORDERED: Famotidine 20 MG TAB ONE (07:35)
[2022-02-14] MEDS ORDERED: NIFEdipine XL 30 MG TAB ONE (07:36)
[2022-02-14] MEDS ORDERED: Carvedilol 6.25 MG TAB PO SCH (08:00)
[2022-02-14] MEDS: Cefepime 2 GM in Sodium Chloride 0.9% 100 ML IVPB SCH ×2 (08:01→23:51)
[2022-02-14] MEDS: Aspirin Chewable 81 MG TAB PO SCH (08:01)
[2022-02-14] MEDS: Famotidine 20 MG TAB PO SCH ×2 (08:02→21:16)
[2022-02-14] MEDS: Enoxaparin Sodium 40 MG/0.4 ML SYRINGE SC SCH (08:02)
[2022-02-14] MEDS: Clopidogrel Bisulfate 75 MG TAB PO SCH (08:02)
[2022-02-14] MEDS: Rosuvastatin 10 MG TAB PO SCH (08:04)
[2022-02-14] MEDS ORDERED: Hydrochlorothiazide 25 MG TAB PO SCH (09:00)
[2022-02-14] MEDS ORDERED: NIFEdipine XL 90 MG TAB PO SCH (09:00)
[2022-02-14] MEDS: Vancomycin HCl 1 GM in Sodium Chloride 0.9% 250 ML 250 ML IVPB SCH ×2 (09:05→21:19)
[2022-02-14] MEDS ORDERED: NIFEdipine XL 30 MG TAB PO SCH (12:00)
[2022-02-14] MEDS: Dextrose 5% in Water 1,000 ML IV SCH (15:54)
[2022-02-14] MEDS ORDERED: Magnesium Sulfate 4 GM in Sodium Chloride 0.9% 250 ML 250 ML IVPB SCH (19:00)
[2022-02-14] MEDS ORDERED: Potassium Chloride 20 MEQ TAB PO SCH (19:00)
[2022-02-14] MEDS: HumaLOG 300 UNITS/3 ML VIAL SC PRN ×2 (19:51→23:28)
[2022-02-14] MEDS ORDERED: Magnesium 2 GM/50 ML BAG (IN WATER) ONE (20:59)
[2022-02-14] MEDS ORDERED: Sodium Chloride 0.9% 250 ML 250 ML ONE ×2 (20:59→21:00)
[2022-02-14] MEDS ORDERED: Labetalol HCl 100 MG TAB PO SCH (21:00)
[2022-02-14] MEDS: Magnesium 2 GM/50 ML(in water) 2 GM in Premix Bag 1 BAG IVPB SCH ×2 (21:16→22:38)
[2022-02-14] MEDS: Montelukast Sodium 10 mg Tablet PO SCH (21:16)
[2022-02-14] MEDS: Carvedilol 12.5 MG TAB PO SCH (21:16)
[2022-02-14 23:50] LABS: Platelet Count 237 10x3/uL (150-450)
[2022-02-14 23:51] LABS: #Eosinphils 0.1 10x3/uL (0.0-0.5); #Monocytes 0.9 10x3/uL (0.0-1.1); #Neutrophils 9.2 10x3/uL (1.5-8.4); %Basophils 0.2 % (0.0-2.0); %Eosinophils 0.6 % (0.0-6.0); %Lymphocytes 17.5 % (18.0-47.0); %Monocytes 6.9 % (0.0-10.0); %Neutrophils 73.8 % (40.0-75.0); Hemoglobin 7.2 g/dL (12.0-15.5); Mean Corpuscular HGB CONC 30.3 g/dL (32.0-36.0); Mean Corpuscular Hemoglobin 21.1 pg (27.0-33.0); Mean Corpuscular Volume 69.8 fl (81.6-98.3); RBC Distribution Width 18.2 % (11.5-14.5); Red Blood Cell (RBC) Count 3.41 10x6/uL (3.90-5.03); White Blood Cell (WBC) Count 12.5 10x3/uL (3.5-10.5)
[2022-02-14 23:55] LABS: Lactic Acid 2.5 mmol/L (0.5-2.2)
[2022-02-15] LABS: ALT (SGPT) 83 U/L (8-55); AST (SGOT) 92 U/L (5-34); Albumin 2.6 g/dL (3.5-5.0); Alkaline Phosphatase 75 U/L (40-110); Anion Gap 12 mmol/L (10-20); BUN (Urea Nitrogen) 23 mg/dL (9.8-20.1); Bilirubin, Total 0.4 mg/dL (0.2-1.2); Calc. Creatinine Clearance 51 mL/min (70-130); Calcium 7.8 mg/dL (7.8-10.44); Carbon Dioxide 21 mmol/L (22-29); Chloride 101 mmol/L (98-107); Estimated GFR 64; Globulin 4.5 g/dL (2.4-3.5); Magnesium 2.6 mg/dL (1.6-2.6); Potassium 3.3 mmol/L (3.5-5.1); Protein, Total 7.1 g/dL (6.0-8.3); Sodium 131 mmol/L (136-145)
[2022-02-15 00:05] LABS: Glucose 469 mg/dL (70-105)
[2022-02-15 00:12] LABS: ALV-art Gradient 147.965 mmHg (0-20); Actual Bicarbonate (HCO3a) 22.5 mEq/L (22-28); Base Excess (BEa) -1.6 mEq/L (-2.0 to +3.0); CO2 Tension 34.7 mmHg (35.0-45.0); Calcium, Ionized (arterial) 1.13 mmol/L (1.12-1.30); Carboxyhemoglobin (COHb) 1.3 gm% (0.0-3.0); Critical Notified By: CP.PH; Hemoglobin (Hb) 7.8 g/dL (12.0-16.0); O2 Tension (PaO2), arterial 79.6 mmHg (> 80.0); Potassium - ABG Lab 3.3 mmol/L (3.70-5.30); Puncture Site LRA; pH, Arterial 7.43 (7.35-7.45)
[2022-02-15] MEDS ORDERED: Potassium Chloride 20 MEQ in Premix Bag 1 BAG IVPB SCH (00:30)
[2022-02-15 04:47] LABS: Hypochromia MODERATE=16-30 cells (100X) (0-5/hpf)
[2022-02-15 04:48] LABS: Platelet Morphology Comment Appears Adequate
[2022-02-15] MEDS: HumaLOG 300 UNITS/3 ML VIAL SC PRN (06:06)
[2022-02-15 06:09] LABS: #Eosinphils 0.1 10x3/uL (0.0-0.5); #Monocytes 0.9 10x3/uL (0.0-1.1); #Neutrophils 9.5 10x3/uL (1.5-8.4); %Basophils 0.2 % (0.0-2.0); %Eosinophils 0.5 % (0.0-6.0); %Lymphocytes 13.8 % (18.0-47.0); %Monocytes 7.4 % (0.0-10.0); %Neutrophils 76.6 % (40.0-75.0); Hemoglobin 7.4 g/dL (12.0-15.5); Mean Corpuscular HGB CONC 30.5 g/dL (32.0-36.0); Platelet Count 244 10x3/uL (150-450); RBC Distribution Width 18.2 % (11.5-14.5); Red Blood Cell (RBC) Count 3.52 10x6/uL (3.90-5.03); White Blood Cell (WBC) Count 12.4 10x3/uL (3.5-10.5)
[2022-02-15] MEDS: Furosemide 40 MG/4 ML VIAL SLOW IVP SCH (06:09)
[2022-02-15 06:16] LABS: Albumin 2.6 g/dL (3.5-5.0); Anion Gap 14 mmol/L (10-20); BUN (Urea Nitrogen) 27 mg/dL (9.8-20.1); BUN/Creatinine Ratio 24.11; Calc. Creatinine Clearance 46 mL/min (70-130); Calcium 7.7 mg/dL (7.8-10.44); Carbon Dioxide 20 mmol/L (22-29); Chloride 101 mmol/L (98-107); Estimated GFR 56; Iron 17 ug/dL (50-170); Iron Binding Capacity, Total 476 mcg/dL (265-497); Magnesium 2.5 mg/dL (1.6-2.6); Phosphorus 2.4 mg/dL (2.3-4.7); Potassium 3.6 mmol/L (3.5-5.1); Sodium 131 mmol/L (136-145)
[2022-02-15 06:20] LABS: Glucose 445 mg/dL (70-105)
[2022-02-15] MEDS ORDERED: Lantus 1000 UNITS/10 ML VIAL SC SCH (06:45)
[2022-02-15] MEDS ORDERED: Dextrose 50% Abboject 50 ML SYRINGE SLOW IVP PRN (07:56)
[2022-02-15] MEDS ORDERED: Dextrose 5% in Water 1,000 ML IV PRN (07:56)
[2022-02-15 08:28] LABS: Vancomycin, Trough 15.3 ug/mL
[2022-02-15] MEDS ORDERED: Budesonide 0.5 MG/2 ML NEB NEB SCH (09:30)
[2022-02-15] MEDS: Cefepime 2 GM in Sodium Chloride 0.9% 100 ML IVPB SCH ×2 (09:41→21:45)
[2022-02-15] MEDS: Enoxaparin Sodium 40 MG/0.4 ML SYRINGE SC SCH (09:41)
[2022-02-15] MEDS: Lantus 1000 UNITS/10 ML VIAL SC SCH ×3 (09:41→22:15)
[2022-02-15] MEDS: Carvedilol 12.5 MG TAB PO SCH ×2 (09:42→21:46)
[2022-02-15] MEDS: Famotidine 20 MG TAB PO SCH (09:42)
[2022-02-15] MEDS: Rosuvastatin 10 MG TAB PO SCH (09:42)
[2022-02-15] MEDS: NIFEdipine XL 60 MG TAB PO SCH ×2 (09:42→21:46)
[2022-02-15] MEDS: Clopidogrel Bisulfate 75 MG TAB PO SCH (09:42)
[2022-02-15] MEDS: Aspirin Chewable 81 MG TAB PO SCH (09:42)
[2022-02-15] MEDS: Vancomycin HCl 1 GM in Sodium Chloride 0.9% 250 ML 250 ML IVPB SCH (11:38)
[2022-02-15] MEDS: Insulin Regular 300 UNITS/3 ML VIAL SC PRN (11:38)
[2022-02-15] MEDS: Budesonide 0.5 MG/2 ML NEB NEB SCH (19:25)
[2022-02-15] MEDS: Montelukast Sodium 10 mg Tablet PO SCH (21:46)
[2022-02-16] MEDS: Vancomycin HCl 750 MG in Sodium Chloride 0.9% 250 ML 250 ML IVPB SCH ×4 (03:16→22:57)
[2022-02-16 06:53] LABS: #Eosinphils 0.2 10x3/uL (0.0-0.5); #Monocytes 1.1 10x3/uL (0.0-1.1); %Basophils 0.3 % (0.0-2.0); %Eosinophils 1.1 % (0.0-6.0); %Lymphocytes 15.6 % (18.0-47.0); %Monocytes 7.4 % (0.0-10.0); %Neutrophils 73.5 % (40.0-75.0); Anion Gap 12 mmol/L (10-20); BUN (Urea Nitrogen) 31 mg/dL (9.8-20.1); Calc. Creatinine Clearance 64 mL/min (70-130); Calcium 8.1 mg/dL (7.8-10.44); Carbon Dioxide 23 mmol/L (22-29); Chloride 103 mmol/L (98-107); Estimated GFR 84; Glucose 205 mg/dL (70-105); Hemoglobin 7.7 g/dL (12.0-15.5); Mean Corpuscular HGB CONC 30.4 g/dL (32.0-36.0); Mean Corpuscular Hemoglobin 20.9 pg (27.0-33.0); Mean Corpuscular Volume 68.8 fl (81.6-98.3); Platelet Count 284 10x3/uL (150-450); Potassium 3.6 mmol/L (3.5-5.1); RBC Distribution Width 18.7 % (11.5-14.5); Red Blood Cell (RBC) Count 3.68 10x6/uL (3.90-5.03); Sodium 134 mmol/L (136-145)
[2022-02-16] MEDS: Budesonide 0.5 MG/2 ML NEB NEB SCH ×2 (07:20→20:16)
[2022-02-16] MEDS: Insulin Regular 300 UNITS/3 ML VIAL SC PRN ×3 (07:35→15:21)
[2022-02-16 07:42] LABS: CRP (Inflammatory) Less than 0.50 mg/dL (= or < 0.5)
[2022-02-16] MEDS ORDERED: Famotidine 20 MG TAB PO SCH ×2 (09:00→09:45)
[2022-02-16] MEDS ORDERED: Spironolactone 25 MG TAB PO SCH (09:15)
[2022-02-16] MEDS ORDERED: Furosemide 40 MG/4 ML VIAL SLOW IVP SCH (09:15)
[2022-02-16] MEDS ORDERED: Furosemide 20 MG/2 ML VIAL ONE (10:05)
[2022-02-16] MEDS: Cefepime 2 GM in Sodium Chloride 0.9% 100 ML IVPB SCH ×2 (10:16→22:11)
[2022-02-16] MEDS: Lantus 1000 UNITS/10 ML VIAL SC SCH ×2 (10:25→22:11)
[2022-02-16] MEDS: Enoxaparin Sodium 40 MG/0.4 ML SYRINGE SC SCH (10:26)
[2022-02-16] MEDS: NIFEdipine XL 60 MG TAB PO SCH ×2 (10:28→22:09)
[2022-02-16] MEDS: Rosuvastatin 10 MG TAB PO SCH (10:29)
[2022-02-16] MEDS: Clopidogrel Bisulfate 75 MG TAB PO SCH (10:29)
[2022-02-16] MEDS: Aspirin Chewable 81 MG TAB PO SCH (10:30)
[2022-02-16] MEDS: Carvedilol 12.5 MG TAB PO SCH ×2 (10:30→22:10)
[2022-02-16] MEDS ORDERED: Iron Sucrose Complex 200 MG in Sodium Chloride 0.9% 100 ML IVPB SCH (10:44)
[2022-02-16] MEDS ORDERED: methylPREDNISolone Sod Succ/PF 125 MG/2 ML VIAL IVP SCH ×2 (11:00→11:15)
[2022-02-16] MEDS: Iron, Sodium Ferric Gluconate 250 MG in Sodium Chloride 0.9% 250 ML 250 ML IVPB SCH (12:02)
[2022-02-16] MEDS: HYDROcodone/Acetaminophen 5/325 mg Tablet PO PRN (15:19)
[2022-02-16 20:51] LABS: Vancomycin, Trough 11.7 ug/mL
[2022-02-16] MEDS: Montelukast Sodium 10 mg Tablet PO SCH (22:09)
[2022-02-16] MEDS: methylPREDNISolone Sod Succ 40 MG VIAL IVP SCH (22:10)
[2022-02-16] MEDS: Famotidine 20 MG TAB PO SCH (22:10)
[2022-02-17 05:16] LABS: #Monocytes 0.6 10x3/uL (0.0-1.1); #Neutrophils 12.3 10x3/uL (1.5-8.4); %Basophils 0.2 % (0.0-2.0); %Eosinophils 0.1 % (0.0-6.0); %Lymphocytes 10.3 % (18.0-47.0); %Monocytes 4.1 % (0.0-10.0); %Neutrophils 83.5 % (40.0-75.0); Hemoglobin 7.4 g/dL (12.0-15.5); Mean Corpuscular HGB CONC 30.8 g/dL (32.0-36.0); Mean Corpuscular Hemoglobin 21.1 pg (27.0-33.0); Mean Corpuscular Volume 68.4 fl (81.6-98.3); Platelet Count 277 10x3/uL (150-450); RBC Distribution Width 18.6 % (11.5-14.5); Red Blood Cell (RBC) Count 3.51 10x6/uL (3.90-5.03); White Blood Cell (WBC) Count 14.5 10x3/uL (3.5-10.5)
[2022-02-17] MEDS: Insulin Regular 300 UNITS/3 ML VIAL SC PRN ×3 (05:52→16:23)
[2022-02-17 06:04] VITALS: BMI 22.0
[2022-02-17 06:10] LABS: Anisocytosis SLIGHT = 6-15 cells (100X) (0-5/hpf); Hypochromia MODERATE=16-30 cells (100X) (0-5/hpf); Microcytosis MODERATE=15-30 cells (100X) (0-5/hpf); Poikilocytosis SLIGHT = 6-15 cells (100X) (0-5/hpf)
[2022-02-17 06:11] LABS: Platelet Morphology Comment Appears Adequate
[2022-02-17 06:24] LABS: Anion Gap 12 mmol/L (10-20); BUN (Urea Nitrogen) 31 mg/dL (9.8-20.1); Calc. Creatinine Clearance 57 mL/min (70-130); Carbon Dioxide 21 mmol/L (22-29); Chloride 103 mmol/L (98-107); Estimated GFR 73; Potassium 4.2 mmol/L (3.5-5.1); Sodium 132 mmol/L (136-145)
[2022-02-17 06:32] LABS: Glucose 474 mg/dL (70-105)
[2022-02-17] MEDS: Budesonide 0.5 MG/2 ML NEB NEB SCH ×2 (07:57→20:32)
[2022-02-17] MEDS: Enoxaparin Sodium 40 MG/0.4 ML SYRINGE SC SCH (08:14)
[2022-02-17] MEDS: methylPREDNISolone Sod Succ 40 MG VIAL IVP SCH ×2 (08:14→21:57)
[2022-02-17] MEDS: Cefepime 2 GM in Sodium Chloride 0.9% 100 ML IVPB SCH ×2 (08:14→22:00)
[2022-02-17] MEDS: Famotidine 20 MG TAB PO SCH ×2 (08:15→21:58)
[2022-02-17] MEDS: Spironolactone 25 MG TAB PO SCH (08:15)
[2022-02-17] MEDS: Clopidogrel Bisulfate 75 MG TAB PO SCH (08:15)
[2022-02-17] MEDS: Carvedilol 12.5 MG TAB PO SCH ×2 (08:15→21:57)
[2022-02-17] MEDS: NIFEdipine XL 60 MG TAB PO SCH ×2 (08:15→21:56)
[2022-02-17] MEDS: Rosuvastatin 10 MG TAB PO SCH (08:15)
[2022-02-17] MEDS: Aspirin Chewable 81 MG TAB PO SCH (08:15)
[2022-02-17] MEDS: Lantus 1000 UNITS/10 ML VIAL SC SCH ×2 (08:23→22:50)
[2022-02-17] MEDS ORDERED: Furosemide 40 MG/4 ML VIAL SLOW IVP SCH (09:00)
[2022-02-17] MEDS ORDERED: Torsemide 20 MG TAB PO SCH (09:00)
[2022-02-17] MEDS: Vancomycin HCl 750 MG in Sodium Chloride 0.9% 250 ML 250 ML IVPB SCH (09:52)
[2022-02-17] MEDS: Iron, Sodium Ferric Gluconate 250 MG in Sodium Chloride 0.9% 250 ML 250 ML IVPB SCH (11:39)
[2022-02-17] MEDS: HYDROcodone/Acetaminophen 5/325 mg Tablet PO PRN (14:56)
[2022-02-17] MEDS: Montelukast Sodium 10 mg Tablet PO SCH (21:58)
[2022-02-18 05:35] LABS: Anion Gap 12 mmol/L (10-20); BUN (Urea Nitrogen) 33 mg/dL (9.8-20.1); Calc. Creatinine Clearance 66 mL/min (70-130); Calcium 8.2 mg/dL (7.8-10.44); Carbon Dioxide 22 mmol/L (22-29); Chloride 106 mmol/L (98-107); Estimated GFR 87; Glucose 196 mg/dL (70-105); Sodium 136 mmol/L (136-145)
[2022-02-18 05:51] LABS: #Basophils 0.1 10x3/uL (0.0-0.2); #Monocytes 1.4 10x3/uL (0.0-1.1); #Neutrophils 14.7 10x3/uL (1.5-8.4); %Basophils 0.3 % (0.0-2.0); %Eosinophils 0.2 % (0.0-6.0); %Lymphocytes 12.4 % (18.0-47.0); %Monocytes 7.3 % (0.0-10.0); %Neutrophils 75.2 % (40.0-75.0); Hemoglobin 7.6 g/dL (12.0-15.5); Mean Corpuscular HGB CONC 30.6 g/dL (32.0-36.0); Mean Corpuscular Hemoglobin 21.2 pg (27.0-33.0); Mean Corpuscular Volume 69.1 fl (81.6-98.3); Platelet Count 278 10x3/uL (150-450); RBC Distribution Width 18.6 % (11.5-14.5); Red Blood Cell (RBC) Count 3.59 10x6/uL (3.90-5.03); White Blood Cell (WBC) Count 19.5 10x3/uL (3.5-10.5)
[2022-02-18] MEDS: Insulin Regular 300 UNITS/3 ML VIAL SC PRN (06:14)
[2022-02-18] MEDS: Budesonide 0.5 MG/2 ML NEB NEB SCH ×2 (07:30→20:35)
[2022-02-18] MEDS: Cefepime 2 GM in Sodium Chloride 0.9% 100 ML IVPB SCH (10:21)
[2022-02-18] MEDS: Enoxaparin Sodium 40 MG/0.4 ML SYRINGE SC SCH (10:21)
[2022-02-18] MEDS: Clopidogrel Bisulfate 75 MG TAB PO SCH (10:22)
[2022-02-18] MEDS: NIFEdipine XL 60 MG TAB PO SCH ×2 (10:22→22:00)
[2022-02-18] MEDS: Carvedilol 12.5 MG TAB PO SCH ×2 (10:22→22:00)
[2022-02-18] MEDS: Spironolactone 25 MG TAB PO SCH (10:23)
[2022-02-18] MEDS: Rosuvastatin 10 MG TAB PO SCH (10:23)
[2022-02-18] MEDS: Famotidine 20 MG TAB PO SCH ×2 (10:23→22:00)
[2022-02-18] MEDS: Aspirin Chewable 81 MG TAB PO SCH (10:23)
[2022-02-18] MEDS: methylPREDNISolone Sod Succ 40 MG VIAL IVP SCH (10:24)
[2022-02-18] MEDS: Torsemide 20 MG TAB PO SCH (10:24)
[2022-02-18] MEDS: Lantus 1000 UNITS/10 ML VIAL SC SCH ×2 (10:25→22:03)
[2022-02-18] MEDS: Iron, Sodium Ferric Gluconate 250 MG in Sodium Chloride 0.9% 250 ML 250 ML IVPB SCH (12:17)
[2022-02-18] MEDS ORDERED: Polyethylene Glycol 3350 17 GM Packet PO PRN (13:28)
[2022-02-18] MEDS: Montelukast Sodium 10 mg Tablet PO SCH (22:00)
[2022-02-19 04:37] LABS: Hemoglobin 7.2 g/dL (12.0-15.5); MDiff Complete? YES; Mean Corpuscular HGB CONC 30.9 g/dL (32.0-36.0); Mean Corpuscular Hemoglobin 21.2 pg (27.0-33.0); Mean Corpuscular Volume 68.7 fl (81.6-98.3); Mean Platelet Volume 11.3 fl (7.4-10.4); Platelet Count 268 10x3/uL (150-450); RBC Distribution Width 18.6 % (11.5-14.5); Red Blood Cell (RBC) Count 3.39 10x6/uL (3.90-5.03); White Blood Cell (WBC) Count 21.8 10x3/uL (3.5-10.5)
[2022-02-19 04:44] LABS: Anion Gap 12 mmol/L (10-20); BUN (Urea Nitrogen) 30 mg/dL (9.8-20.1); Calc. Creatinine Clearance 60 mL/min (70-130); Carbon Dioxide 21 mmol/L (22-29); Chloride 107 mmol/L (98-107); Estimated GFR 78; Glucose 153 mg/dL (70-105); Potassium 3.5 mmol/L (3.5-5.1); Sodium 136 mmol/L (136-145)
[2022-02-19 06:13] LABS: Band 2 % (5-11); Lymphocytes 16 % (21-51); Monocytes 14 % (0-10); Neutrophil 68 % (42-75)
[2022-02-19 06:16] LABS: Anisocytosis SLIGHT = 6-15 cells (100X) (0-5/hpf); Hypochromia SLIGHT = 6-15 cells (100X) (0-5/hpf); Microcytosis SLIGHT = 6-15 cells (100X) (0-5/hpf); Ovalocytes SLIGHT = 2-5 cells (100X) (0-1/hpf); Target Cells SLIGHT = 2-5 cells (100X) (0-1/hpf)
[2022-02-19 06:17] LABS: Platelet Morphology Comment Appears Adequate
[2022-02-19] MEDS: Budesonide 0.5 MG/2 ML NEB NEB SCH (07:05)
[2022-02-19] MEDS ORDERED: predniSONE 20 MG TAB PO SCH (08:00)
[2022-02-19] MEDS ORDERED: Spironolactone 25 MG TAB PO SCH (09:00)
[2022-02-19] MEDS: NIFEdipine XL 60 MG TAB PO SCH (09:16)
[2022-02-19] MEDS: Rosuvastatin 10 MG TAB PO SCH (09:16)
[2022-02-19] MEDS: Aspirin Chewable 81 MG TAB PO SCH (09:16)
[2022-02-19] MEDS: Enoxaparin Sodium 40 MG/0.4 ML SYRINGE SC SCH (09:17)
[2022-02-19] MEDS: Carvedilol 12.5 MG TAB PO SCH (09:17)
[2022-02-19] MEDS: Torsemide 20 MG TAB PO SCH (09:17)
[2022-02-19] MEDS: Famotidine 20 MG TAB PO SCH (09:17)
[2022-02-19] MEDS: Clopidogrel Bisulfate 75 MG TAB PO SCH (09:17)
[2022-02-19] MEDS: Lantus 1000 UNITS/10 ML VIAL SC SCH (09:18)
[2022-02-19 16:29] VITALS: BP 135/78; TEMP 98.2
[2022-02-19 19:12] LABS: 5 HIAA,Urine 2.6 mg/L (Undefined); 5 HIAA-24H Urine 4.7 mg/24 hr (0.0-14.9)
[2022-02-20 01:36] LABS: Metanephrine,Plasma 59.4 pg/mL (0.0-88.0); Normetanephrine,Pl 69.2 pg/mL (0.0-244.0)
== END 2022-02-19 16:15 | DRG 871 ==
LOC: CSHERS 17:57 → CSHERHOLD 20:59 → CSHTELE 02-14 14:51
PROVIDERS: ADMIT Internal Medicine; ATTEND Family Medicine
DX: A41.9 Sepsis, unspecified organism (principal); G93.41 Metabolic encephalopathy; J96.01 Acute respiratory failure with hypoxia; J18.9 Pneumonia, unspecified organism; I50.33 Acute on chronic diastolic (congestive) heart failure; L02.414 Cutaneous abscess of left upper limb; L97.829 Non-pressure chronic ulcer of other part of left lower leg with unspecified severity; J44.1 Chronic obstructive pulmonary disease with (acute) exacerbation; J44.0 Chronic obstructive pulmonary disease with (acute) lower respiratory infection; N17.9 Acute kidney failure, unspecified; E87.1 Hypo-osmolality and hyponatremia; E87.20 Acidosis, unspecified; Z20.822 Contact with and (suspected) exposure to COVID-19; I16.0 Hypertensive urgency; E11.622 Type 2 diabetes mellitus with other skin ulcer; E11.51 Type 2 diabetes mellitus with diabetic peripheral angiopathy without gangrene; F17.210 Nicotine dependence, cigarettes, uncomplicated; F19.10 Other psychoactive substance abuse, uncomplicated; E87.6 Hypokalemia; E83.42 Hypomagnesemia; D50.9 Iron deficiency anemia, unspecified; E11.649 Type 2 diabetes mellitus with hypoglycemia without coma; F41.9 Anxiety disorder, unspecified; I11.0 Hypertensive heart disease with heart failure; I25.10 Atherosclerotic heart disease of native coronary artery without angina pectoris; Z79.82 Long term (current) use of aspirin; Z79.84 Long term (current) use of oral hypoglycemic drugs; Z79.899 Other long term (current) drug therapy; Z79.02 Long term (current) use of antithrombotics/antiplatelets; Z98.51 Tubal ligation status
CPT/HCPCS: 36415; 36416; 36600; 51702; 71045; 76770; 80048; 80053; 80069; 80202; 80306; 81003; 82088; 82140; 82728; 82805; 83497; 83540; 83550; 83605; 83735; 83835; 83880; 84145; 84244; 84484; 85025; 85610; 85730; 86140; 87040; 87081; 93005; 94640; 94660; 94760; 96365; 96366; 96367; 96375; 97139; J0692; J1650; J1815; J1940; J1956; J2916; J2920; J2930; J3370; J3475; J3480; J3490; J7050; J7070; J7512; J7620; J7626; J7999

== ENCOUNTER 2022-04-06 20:27 | Emergency (ER) | payer OTHER | END 2022-04-06 21:41 | disposition left against medical advice (07) | LOC: CSHERS 20:27 | DX: Z53.21 Procedure and treatment not carried out due to patient leaving prior to being seen by health care provider (principal) ==